=== PATIENT | male | born 1995 | race Caucasian/White ===

== ENCOUNTER → 2016-11-06 | Outpatient (CLI) | payer BC, MEDICAID ==
[~2016-11-06] MED LIST: NS 100 ML IV 100 ML IV ONE
--- NOTE | 2016-11-06 11:58 | CT ---
CT OF THE ABDOMEN AND PELVIS WITH CONTRAST HISTORY: Abdominal pain and weight loss Comparison: None Technique: Multiple axial images of the abdomen and pelvis were obtained from the lung bases to the pubic symphy sis follow the administration of IV contrast as well as oral contrast. Dose reduction techniques inc luding Automated Exposure Control (AEC) and adjustment of mA and kV were utlized. Findings: The heart is normal in size. There is no pericardial effusion. Lung bases are clear without focal con solidation, pleural effusion or pneumothorax. Liver and spleen are normal in size, enhancement characteristics and contour. No focal lesions. The p ortal vein is patent. No ductal dilitation. Gallbladder is present. No calcified gallstones or gallbl adder wall thickening. The pancreas is unremarkable. Adrenal glands are normal. Kidneys enhance symme trically without hydronephrosis or nephrolithiasis. No bowel obstruction or inflammation. The tip of the appendix appears mildly thick walled and measure s 9 mm although there are small foci of air and contrast within the appendiceal lumen. No abnormal ap pearing mesenteric or retroperitoneal lymph nodes. No free fluid or fluid collections. The bladder is normal in appearance. Prostate not enlarged. No free fluid or abnormal pelvic lymph no senthil. No aggressive osseous lesions. IMPRESSION: 1. Somewhat equivocal findings concerning the appendix as above. Although appendix appears mildly th ick walled and is slightly greater than the upper limits of normal in size, it does have mitigating f actor such as internal contrast and air. In this setting, the diagnosis of early appendicitis cannot be ruled out of but would rely heavily on clinical and laboratory evaluation. Reported By:
== END ==
LOC: RAD 08:38
PROVIDERS: ATTEND Internal Medicine
DX: R63.4 Abnormal weight loss (principal); R10.84 Generalized abdominal pain
CPT/HCPCS: 74177; A4222